=== PATIENT | female | born 2000 | race Caucasian/White ===

== ENCOUNTER 2023-10-12 19:29 | Emergency (ER) | payer BC, SELFPAY ==
[2023-10-12] VITALS (8 sets, daily range): BP systolic 128–140; BP diastolic 83–84; PULSE 60–104; RESP 20; TEMP 36.3; O2SAT 89–100; BMI 21.9
--- NOTE | 2023-10-12 19:52 | ED_ITS ---
HPI - General Adult General Chief complaint: Nausea/Vomiting Stated complaint: Vomiting, lower back pain Time Seen by Provider: 10/12/23 19:52 History of Present Illness HPI narrative: Diarrhea started at 1030 , became nauseous at 1400, has been vomiting since 1700, now diarrhea and vomiting alternating periodically. Has 7/10 lower back pain as well (this started before the diarrhea in the AM). Has abd pain as well. Had influenza A 2 weeks ago. 23-year-old young woman presenting to the emergency department with concern of vomiting and diarrhea. Early this morning did have some low back ache or pain. Sounds to not have been radicular. Diarrhea followed. This afternoon then developed vomiting. Has not noted hematochezia or melena or hematemesis. Abdominal pain yes that she would attribute to all the vomiting. Was diagnosed with influenza a 2 weeks ago. She has not noted any rashes though I note on arrival blotchy erythematous rash on the upper chest - frankly looks stress- related. No dysuria or frequency. Is thirsty. No particular close exposures n oted otherwise. No fever. Related Data Home Medications Medication Instructions Recorded Confirmed No Known Home Medications 10/12/23 10/12/23 Allergies Allergy/AdvReac Type Severity Reaction Status Date / Time Penicillins Allergy Unknown Verified 10/12/23 19:35 Review of Systems Status of ROS: Reports: 6 or more systems reviewed and unremarkable except as noted in History and below [facility] Social History Smoking Status: Never smoker Do you use any of these nicotine containing products: None Second hand tobacco smoke exposure: No How often do you have a drink containing alcohol: 2-4 times a month AUDIT-C Alcohol total score: 2 Non-prescribed substance use: denies use service: No Exam Narrative: Exam Narrative: Pleasant. Normal mentation. Seems fatigued. Lips are little dry. Oropharynx is sticky. Cranial nerves 2-12 intact. She is breathing easily. Lungs are clear. Sore to palpation over the low perispinal musculature left greater than right. Abdomen is soft and diffusely mildly tender. Normoactive bowel sounds. No masses. Heart in elevated rate in a regular rhythm without murmur rub or gallop. Extremities are well perfused and without edema in the lower extremities. She has a blotchy faintly erythematous rash on the upper anterior chest. Not urticarial. Const: Vital Signs, click to edit/add: Vital Signs - 24 hr 10/12/23 19:32 Temperature 97.4 F L Pulse Rate [Pulse Oximeter] 104 H Respiratory Rate 20 Blood Pressure [Ri ght Upper Arm] 140/83 H Pulse Oximetry 100 Oxygen Delivery Me thod Room Air Documenting provider has reviewed patient's vital signs: yes Course Vital Signs Vital signs: Initial Vital Signs Temperature 97.4 F L 10/12/23 19:32 Temperature Source Oral 10/12/23 19:32 Pulse Rate 104 H 10/12/23 19:32 Respiratory Rate 20 10/12/23 19:32 Blood Pressure 140/83 H 10/12/23 19:32 Blood Pressure Mean 102 10/12/23 19:32 Blood Pressure Position Sitting 10/12/23 19:32 Pulse Oximetry 100 10/12/23 19:32 Oxygen Delivery Method Room Air 10/12/23 19:32 Vital Signs Temperature 97.4 F L 10/12/23 19:32 Pulse Rate 104 H 10/12/23 19:32 Respiratory Rate 20 10/12/23 19:32 Blood Pressure 140/83 H 10/12/23 19:32 Pulse Oximetry 100 10/12/23 19:32 Oxygen Delivery Method Room Air 10/12/23 19:32 Temperature 97.4 F L 10/12/23 19:32 Pulse Rate 104 H 10/12/23 19:32 Respiratory Rate 20 10/12/23 19:32 Blood Pressure 140/83 H 10/12/23 19:32 Pulse Oximetry 100 10/12/23 19:32 Oxygen Delivery Method Room Air 10/12/23 19:32 Medications Administered Medications: Generic Name Dose Route Start Last Admin Trade Name Freq PRN Reason Stop Dose Admin Lactated Ringer's 1,000 mls @ 1,000 mls/hr 10/12/23 21:18 10/12/23 21:35 Lactated Ringers 1000 Ml IV 10/12/23 22:17 1,000 mls/hr .Q1H ONE Administration Ketorolac Tromethamine 15 mg 10/12/23 21:19 10/12/23 21:36 Ketorolac 15 Mg/Ml Inj IVP 10/12/23 21:20 15 mg ONCE ONE Administration Promethazine HCl 12.5 mg 10/12/23 21:18 10/12/23 21:38 Promethazine 25 Mg/Ml Inj IVP 10/12/23 21:19 12.5 mg ONCE ONE Administration Discontinued Medications Generic Name Dose Route Start Last Admin Trade Name Carlee PRN Reason Stop Dose Admin Sodium Chloride 1,000 mls @ 1,000 mls/hr 10/12/23 20:03 10/12/23 21:04 0.9 % Sodium Chloride 1000 Ml IV 10/12/23 21:02 Infused .Q1H ONE Infusion Ondansetron HCl 4 mg 10/12/23 20:03 10/12/23 20:07 Ondansetron 2 Mg/Ml Inj IVP 10/12/23 20:04 4 mg ONCE ONE Administration Medical Decision Making MDM Narrative Medical decision making narrative: Considering community prevalence there is currently vomiting and diarrheal illness NOS as well as some same symptoms testing positive for influenza. At this point would seem to benefit from hydration. Will check electrolytes. Abdominal exam is reassuring. Check urinalysis IV is established. Will be receiving normal saline and Zofran initially. Urinalysis is concentrated. Does have 2-5 white cells on microscopic though this may be simply be related to concentration; absent other symptoms would wait for culture results and review symptoms. Otherwise labs are reassuring. On reassessment --is feeling better. Lips/mouth more moist. Still with some belly discomfort and back ache and nausea. Would appreciate more for nausea and maybe something for discomfort. Will be ordering another L of fluids and promethazine. I anticipate further improvement and signing out at change of shift. To be discharged with Zofran. See patient discharge plan Lab Data Lab results reviewed: Yes I reviewed the patient's lab results Labs: Lab Results 10/12/23 10/12/23 10/12/23 Range/Units 19:35 19:50 20:00 Sodium 139 (135-149) mmol/L Potassium 3.6 (3.6-5.1) mmol/L Chloride 103 (96-114) mmol/L Carbon Dioxide 20 (20-32) mmol/L Anion Gap 16 H (7-15) mEq/L BUN 16 (5-24) mg/dL Creatinine 0.7 (0.5-1.5) mg/dL Estimated Creat Clear 123.63 Estimated GFR 126 ml/min Glucose 133 H (60-115) mg/dL Calcium 10.0 (8.4-10.6) mg/dL Urine Color Yellow (Yellow) Urine Appearance Turbid A (Clear) Urine pH 5.5 (5.0-8.5) Ur Specific Tram >= 1.030 (1.000-1.030) Urine Protein 1+ A (Negative) Urine Glucose (UA) Negative (Negative) Urine Ketones Negative (Negative) Urine Blood Trace-intact A (Negative) Urine Nitrite Negative (Negative) Urine Bilirubin 1+ A (Negative) Urine Urobilinogen 0.2 (0.2-1.0) Ur Leukocyte Esterase Negative (Negative) Urine RBC 0-2 (0-2) Urine WBC 2-5 (0-5) Ur Squamous Epith Cells Moderate A (None-Few) Urine Bacteria Moderate A (None) Fine Granular Casts Few A (None) SARS-CoV-2 (PCR) Negative SARS-CoV-2 (Negative) Influenza Type A (PCR) Negative PCR FLU A (Negative) Influenza Type B (PCR) Negative PCR FLU B (Negative) RSV (PCR) Negative PCR RSV (Negative) Discharge Plan Discharge Clinical Impression: Gastroenteritis, Dehydration Patient Disposition: Home, Self-Care Condition: Improved Additional Instructions: Focus on hydration. Slow advance of diet over the next 24-36 hours. Diluted juices. Soup broths. Crackers, rice, toast. Zofran from [facility]. As long is no fever or blood in stool, could take loperamide for diarrhea necessary. Can take up to 800 mg of ibuprofen or up to 1000 mg of acetaminophen per dose. Return for intractable vomiting or diarrhea, marked increase in abdominal pain, associated fever. A urine culture is pending here. Will call you if might require intervention. Findings I think represent dehydration more than anything else. Prescriptions: No Action No Known Home Medications Follow Up/Referrals: Provider,Not a Local [Primary Care Provider] - Stand Alone Forms: [facility] Undergarments Info Instructions
[2023-10-12 19:58] LABS: Appearance Urine Turbid (Clear); Bilirubin Urine 1+ (Negative); Blood Urine Trace-intact (Negative); Color Urine Yellow (Yellow); Glucose Urine Negative (Negative); Ketones Urine Negative (Negative); Leukocyte Esterase Urine Negative (Negative); Nitrite Urine Negative (Negative); Protein Urine 1+ (Negative); Specific Gravity Urine >= 1.030 (1.000-1.030); Urobilinogen Urine 0.2 (0.2-1.0); pH Urine 5.5 (5.0-8.5)
[2023-10-12] MEDS: 0.9 % SODIUM CHLORIDE 1000 ml 1,000 ML IV (20:07)
[2023-10-12] MEDS: ONDANSETRON 2 MG/ML inj 4 MG IVP (20:07)
[2023-10-12 20:09] LABS: Bacteria Urine Moderate; Fine Granular Casts Urine Few; RBC Urine 0-2 (0-2); Squamous Epithelial Cell Urine Moderate (None-Few)
[2023-10-12 20:22] LABS: PCR FLU A Negative PCR FLU A (Negative); PCR FLU B Negative PCR FLU B (Negative); PCR RSV Negative PCR RSV (Negative); SARS PCR* Negative SARS-CoV-2 (Negative)
[2023-10-12 20:33] LABS: Chloride* 103 mmol/L (96-114)
[2023-10-12 20:34] LABS: Potassium* 3.6 mmol/L (3.6-5.1); Sodium* 139 mmol/L (135-149)
[2023-10-12 20:36] LABS: Creatinine* 0.7 mg/dL (0.5-1.5); Est. Creatinine Clearance* 123.63; Estimated Glomerular Filt Rate 126 ml/min
[2023-10-12 20:37] LABS: Anion Gap 16 mEq/L (7-15); Blood Urea Nitrogen* 16 mg/dL (5-24); Carbon Dioxide* 20 mmol/L (20-32); Glucose* 133 mg/dL (60-115)
[2023-10-12] MEDS: LACTATED RINGERS 1000 ML 1,000 ML IV (21:35)
[2023-10-12] MEDS: KETOROLAC 15 MG/ML inj IVP (21:36)
[2023-10-12] MEDS: PROMETHAZINE 25 MG/ML INJ 12.5 MG IVP (21:38)
== END 2023-10-12 22:30 | disposition home or self-care (01) ==
PROVIDERS: Emergency Provider Family Medicine
DX: K52.9 Noninfective gastroenteritis and colitis, unspecified (principal); E86.0 Dehydration
CPT/HCPCS: 36415; 80048; 81001; 87086; 87631; 96374; 96375; 99283; 99284; J1885; J2405; J2550; J7030; J7120